=== PATIENT | female | born 1950 | race Caucasian/White ===

== ENCOUNTER 2023-05-01 09:00 | Emergency (ER) | payer MEDICARE ==
[~2023-05-01] VITALS: Ht 154.9 cm; Wt 99.4 kg
[2023-05-01 09:20] VITALS: BP 159/89
== END 2023-05-01 11:22 | disposition home or self-care (01) ==
LOC: ER 09:02
DX: M25.511 Pain in right shoulder (principal); Z88.0 Allergy status to penicillin; Z88.8 Allergy status to other drugs, medicaments and biological substances
CPT/HCPCS: 73030; 99283